=== PATIENT | male | born 1965 | race Caucasian/White ===

== ENCOUNTER → 2024-12-08 08:06 | Outpatient (REF) | payer OTHER, SELFPAY | LOC: HWRAD 08:06 | PROVIDERS: ATTENDING PHYSICIAN Specialist; FAMILY PHYSICIAN Family Medicine | DX: R31.0 Gross hematuria (principal) | CPT/HCPCS: 74178; Q9967 ==

== ENCOUNTER 2024-12-23 06:19 | Day surgery (SDC) | payer OTHER, SELFPAY ==
[2024-12-19 09:15] LABS: APTT 26.1 Sec (23.4-35.0); INR 0.98; PT 13.3 Sec (11.4-14.6)
[2024-12-19 09:29] LABS: Hematocrit 43.3 % (39.0-52.0); Hemoglobin 15.0 g/dL (13.0-18.0); Mean Corp Hgb Conc. 34.6 g/dL (33.0-37.0); Mean Corpuscular Volume 89.8 fL (80.0-94.0); Platelet Count 384 10^3/uL (130-400); Red Cell Dist. Width 12.9 % (11.5-14.5)
[2024-12-19 09:43] LABS: ALT (SGPT) 24 U/L (0-50); AST (SGOT) 30 U/L (17-59); Albumin 4.4 g/dl (3.5-5.0); Alkaline Phosphatase 47 U/L (38-126); Blood Urea Nitrogen 24 mg/dl (9-20); Calcium 9.4 mg/dl (8.4-10.2); Carbon Dioxide 28 mmol/L (22-30); Chloride 107 mmol/L (98-107); Glucose 110 mg/dl (70-99); Potassium 4.5 mmol/L (3.5-5.1); Sodium 140 mmol/L (135-145); Total Protein 7.2 g/dl (6.3-8.2); eGFR > 60.00
[2024-12-19 14:10] VITALS: BMI 23.7
[2024-12-23] VITALS (9 sets, daily range): BP systolic 116–152; BP diastolic 77–90; BMI 23.7
[2024-12-23] MEDS: NORMOSOL-R/PLASMALYTE-A 1000 IV (08:03)
[2024-12-23] MEDS: DETROL LA 4 MG PO (11:57)
== END 2024-12-23 13:27 | disposition home or self-care (01) ==
LOC: SDS 06:19
PROVIDERS: ATTENDING PHYSICIAN Specialist; FAMILY PHYSICIAN Family Medicine
DX: N21.0 Calculus in bladder (principal); N40.0 Benign prostatic hyperplasia without lower urinary tract symptoms; R31.0 Gross hematuria
CPT/HCPCS: 52318; 36415; 80053; 82365; 85027; 85610; 85730; 93005